=== PATIENT | male | born 1980 | race Caucasian/White ===

== ENCOUNTER 2017-08-29 20:42 | Emergency (ER) | payer MEDICAID ==
[~2017-08-29] VITALS: Ht 175.3 cm; Wt 79.0 kg
[~2017-08-29 20:42] MED LIST: CYCL-1 PO; HYDR-569 PO; NAPR-1154 PO
[2017-08-29 21:49] VITALS: BP 128/78
== END 2017-08-29 21:54 | disposition home or self-care (01) ==
LOC: ER 20:42
DX: S16.1XXA Strain of muscle, fascia and tendon at neck level, initial encounter (principal); F17.200 Nicotine dependence, unspecified, uncomplicated; F12.90 Cannabis use, unspecified, uncomplicated; Z56.0 Unemployment, unspecified; Z88.0 Allergy status to penicillin; Z79.899 Other long term (current) drug therapy; V89.2XXA Person injured in unspecified motor-vehicle accident, traffic, initial encounter; Y93.89 Activity, other specified; Y92.89 Other specified places as the place of occurrence of the external cause; Y99.8 Other external cause status
CPT/HCPCS: 72040; 99284

== ENCOUNTER 2018-01-12 18:31 | Emergency (ER) | payer MEDICAID ==
[~2018-01-12] VITALS: Ht 172.7 cm; Wt 64.7 kg
[~2018-01-12 18:31] MED LIST changes: +HYDR-4383 PO; -HYDR-569 PO
[2018-01-12 18:42] VITALS: BP 121/70
[2018-01-12] MEDS ORDERED: clindamycin 150mg capsule PO ONE (19:20)
[2018-01-12] MEDS ORDERED: sulfamethoxazole/trimethoprim DS (800/160mg) tablet PO ONE (19:20)
[2018-01-12] MEDS ORDERED: ibuprofen tablet 400 MG TABLET PO ONE (19:20)
[2018-01-12] MEDS ORDERED: ondansetron 4mg rapidly disintigrating tab PO ONE (19:20)
[2018-01-12] MEDS ORDERED: CLIN150C8 PO (19:42)
[2018-01-12] MEDS ORDERED: SULF1TAB49 PO (19:42)
== END 2018-01-12 19:53 | disposition home or self-care (01) ==
LOC: ER 18:32
DX: L03.115 Cellulitis of right lower limb (principal); L02.415 Cutaneous abscess of right lower limb; F12.90 Cannabis use, unspecified, uncomplicated; Z88.0 Allergy status to penicillin; Z88.6 Allergy status to analgesic agent; Z56.0 Unemployment, unspecified
CPT/HCPCS: 10060; 99284

== ENCOUNTER 2021-09-11 17:35 | Emergency (ER) | payer MEDICAID ==
[~2021-09-11 17:35] MED LIST changes: +CLIN150C8 PO
== END 2021-09-11 18:39 | disposition left against medical advice (07) ==
LOC: ER 17:36
DX: Z00.8 Encounter for other general examination (principal); Z53.21 Procedure and treatment not carried out due to patient leaving prior to being seen by health care provider

== ENCOUNTER 2023-12-29 17:31 | Emergency (ER) | payer MEDICAID ==
[~2023-12-29] VITALS: Ht 175.3 cm; Wt 70.5 kg
[~2023-12-29 17:31] MED LIST changes: +CLIN-214 PO; -CLIN150C8 PO
[2023-12-29 18:23] LABS: BASOPHILS # (AUTO) 0.3 X10'3 (0-0.2); EOSINOPHILS # (AUTO) 0.1 X10'3 (0-0.9); EOSINOPHILS % (AUTO) 0.4 % (0-6); HEMATOCRIT 53.2 % (42.0-52.0); HEMOGLOBIN 17.9 g/dl (14.0-17.9); LYMPHOCYTES # (AUTO) 1.3 X10'3 (1.1-4.8); LYMPHOCYTES % (AUTO) 5.2 % (21-51); MEAN CORPUSCULAR HEMOGLOBIN 30.7 PG (27.0-31.0); MEAN CORPUSCULAR HGB CONC 33.6 g/dL (33.0-36.5); MEAN CORPUSCULAR VOLUME 91.4 FL (78-98); MEAN PLATELET VOLUME 7.4 FL (7.4-10.4); MONOCYTES # (AUTO) 1.6 X10'3 (0-0.9); MONOCYTES % (AUTO) 6.6 % (2-12); NEUTROPHILS # (AUTO) 21.5 X10'3 (1.8-7.7); NEUTROPHILS % (AUTO) 86.8 % (42-75); PLATELET COUNT 434 X10'3 (140-440); RED BLOOD COUNT 5.82 X10'6 (4.70-6.10); RED CELL DISTRIBUTION WIDTH 12.6 % (11.5-14.5); WHITE BLOOD COUNT 24.8 X10'3 (4.5-11.0)
[2023-12-29 18:34] LABS: ALANINE AMINOTRANSFERASE 29 U/L (12-78); ALBUMIN 4.4 G/DL (3.4-5.0); ALKALINE PHOSPHATASE 57 IU/L (46-116); ANION GAP 10 (8-16); ASPARTATE AMINO TRANSFERASE 19 U/L (10-37); BILIRUBIN,TOTAL 0.4 MG/DL (0.1-1.0); BLOOD UREA NITROGEN 18 MG/DL (7-18); BUN/CREATININE RATIO 13.8 (10.0-20.0); CALCIUM 10.2 MG/DL (8.5-10.1); CHLORIDE 100 MMOL/L (99-107); GLUCOSE 105 MG/DL (70-104); LIPASE 30 U/L (16-77); POTASSIUM 4.1 MMOL/L (3.5-5.1); SODIUM 139 MMOL/L (135-145); TOTAL CARBON DIOXIDE 29.1 MMOL/L (24-32); TOTAL PROTEIN 8.7 G/DL (6.4-8.2); eCRCL 74 ML/MIN; eGFR 61 ML/MIN
[2023-12-29 18:57] LABS: PLATELET ESTIMATE NORMAL
[2023-12-29] MEDS: normal saline 1000ML IV soln IVB ONE ×3 (19:05→20:08)
[2023-12-29] MEDS: metoclopramide 5 mg/ml inj IV ONE (19:23)
[2023-12-29] MEDS: diphenhydrAMINE 50 mg/ml inj IV ONE (19:23)
[2023-12-29 20:37] LABS: LYMPHOCYTES % (MANUAL) 11 % (21-51); MONOCYTES % (MANUAL) 10 % (2-12); NEUTROPHILS % (MANUAL) 79 % (42-75); TOTAL CELLS COUNTED 100
[2023-12-29] MEDS ORDERED: ONDA-243 PO (21:00)
[2023-12-29 21:30] VITALS: BP 123/78; PULSE 94; RESP 18; TEMP 97.9; O2SAT 99
== END 2023-12-29 21:20 | disposition home or self-care (01) ==
LOC: ER 17:32
DX: E86.0 Dehydration (principal); R10.12 Left upper quadrant pain; F12.90 Cannabis use, unspecified, uncomplicated; Z88.0 Allergy status to penicillin; Z88.5 Allergy status to narcotic agent
CPT/HCPCS: 36415; 74176; 80053; 83690; 84145; 85007; 85008; 85025; 96361; 96374; 96375; 99285; J1200; J2765; J7030

== ENCOUNTER 2024-05-10 15:46 | Emergency (ER) | payer MEDICAID ==
[~2024-05-10] VITALS: Ht 175.3 cm; Wt 72.9 kg
[~2024-05-10 15:46] MED LIST changes: +ONDA-243 PO
[2024-05-10 15:52] VITALS: TEMP 98.3
[2024-05-10 22:03] VITALS: BP 112/72; PULSE 91; RESP 12; O2SAT 97
[2024-05-10] MEDS ORDERED: ONDA-243 PO (23:07)
[2024-05-10] MEDS ORDERED: PHEN-786 PO (23:07)
[2024-05-10] MEDS ORDERED: SULF1TAB49 PO (23:07)
[2024-05-10] MEDS ORDERED: AZIT-164 PO (23:30)
[2024-05-10] MEDS ORDERED: COROTSUS OT (23:30)
== END 2024-05-10 23:32 | disposition home or self-care (01) ==
LOC: ER 15:46
DX: H60.92 Unspecified otitis externa, left ear (principal); Z20.822 Contact with and (suspected) exposure to COVID-19; F12.90 Cannabis use, unspecified, uncomplicated; Z88.0 Allergy status to penicillin; Z88.5 Allergy status to narcotic agent; Z79.2 Long term (current) use of antibiotics
CPT/HCPCS: 36415; 70360; 71046; 87502; 87503; 87811; 99284

== ENCOUNTER 2024-05-25 12:23 | Emergency (ER) | payer MEDICAID ==
[~2024-05-25] VITALS: Ht 175.3 cm; Wt 69.5 kg
[~2024-05-25 12:23] MED LIST changes: +AZIT-164 PO; +COROTSUS OT; +PHEN-786 PO
[2024-05-25 12:34] VITALS: BP 115/79; PULSE 101; RESP 16; TEMP 98.4; O2SAT 97
== END 2024-05-25 15:02 | disposition left against medical advice (07) ==
LOC: ER 12:24
DX: S60.456A Superficial foreign body of right little finger, initial encounter (principal); Z88.0 Allergy status to penicillin; Z88.5 Allergy status to narcotic agent; Z79.2 Long term (current) use of antibiotics; Z79.899 Other long term (current) drug therapy; W45.8XXA Other foreign body or object entering through skin, initial encounter; Y93.89 Activity, other specified; Y92.89 Other specified places as the place of occurrence of the external cause; Y99.8 Other external cause status
CPT/HCPCS: 99284